=== PATIENT | male | born 1955 | race Caucasian/White ===

== ENCOUNTER 2023-10-13 23:02 | Inpatient (IN) | payer MEDICARE ==
[~2023-10-13] VITALS: Ht 182.9 cm; Wt 135.2 kg
[2023-10-13] MEDS ORDERED: PIPERACILLIN/TAZOBACTAM 3.375 GM VIAL ONE (23:30)
[2023-10-13] MEDS: SODIUM CHLORIDE 0.9% 1000ML 1,000 ML IV STA (23:31)
[2023-10-13] MEDS: ACETAMINOPHEN 325 MG TAB PO STA (23:31)
[2023-10-13] MEDS ORDERED: SODIUM CHLORIDE 0.9% 1000ML 1,000 ML ONE (23:31)
[2023-10-13 23:53] LABS: BASOPHILS # (AUTO) 0.1 (0.0-0.1); BASOPHILS % 0.3 % (0.0-1.0); HEMATOCRIT 42.1 % (38.2-49.6); HEMOGLOBIN 15.1 g/dL (14.0-18.0); LYMPHOCYTES # (AUTO) 0.6 (1.0-3.2); LYMPHOCYTES % 3.4 % (18.0-39.1); MEAN CORPUSCULAR HEMOGLOBIN 29.1 pg (28-32); MEAN CORPUSCULAR HGB CONC 35.9 g/dL (31-35); MEAN CORPUSCULAR VOLUME 81.1 fL (81-99); MONOCYTES # (AUTO) 0.8 (0.2-0.8); MONOCYTES % 4.2 % (4.4-11.3); NEUTROPHILS # (AUTO) 16.8 (2.1-6.9); NEUTROPHILS % 91.2 % (38.7-80.0); PLATELET COUNT 125 x10e3/uL (140-360); RED BLOOD COUNT 5.19 x10e6/uL (4.3-5.7); RED CELL DISTRIBUTION WIDTH 13.7 % (11.7-14.4); WHITE BLOOD COUNT 18.42 x10e3/uL (4.8-10.8)
[2023-10-13 23:55] LABS: BILIRUBIN,URINE SMALL (NEGATIVE); CLARITY,URINE SL CLOUDY (CLEAR); COLOR,URINE ORANGE (YELLOW); GLUCOSE, URINE NEGATIVE (NEGATIVE); KETONES,URINE NEGATIVE (NEGATIVE); LEUKOCYTE ESTERASE ,URINE NEGATIVE (NEGATIVE); NITRITE,URINE NEGATIVE (NEGATIVE); PH,URINE 5.5 (5 - 7); PROTEIN,URINE DIPSTICK 2+ (NEGATIVE); URINE UROBILINOGEN 0.2 mg/dL (0.2 - 1)
[2023-10-14 00:04] LABS: ALANINE AMINOTRANSFERASE 342 IU/L (0-55); ALBUMIN 2.8 g/dL (3.5-5.0); ALBUMIN/GLOBULIN RATIO 0.8 (0.8-2.0); ALKALINE PHOSPHATASE 181 IU/L (40-150); ANION GAP 17.6 mmol/L (8-16); BILIRUBIN,TOTAL 3.3 mg/dL (0.2-1.2); BLOOD UREA NITROGEN 35 mg/dL (7-26); BUN/CREATININE RATIO 17 (6-25); CALCIUM 8.3 mg/dL (8.4-10.2); CARBON DIOXIDE 17 mmol/L (22-29); CHLORIDE 96 mmol/L (98-107); CREATINE KINASE 719 IU/L (30-200); CREATININE, SERUM 2.06 mg/dL (0.72-1.25); EST GLOMERULAR FILTRATION RATE 34 ML/MIN (>=60); GLUCOSE 121 mg/dL (74-118); POTASSIUM 3.6 mmol/L (3.5-5.1); SODIUM 127 mmol/L (136-145); TOTAL PROTEIN 6.3 g/dL (6.5-8.1)
[2023-10-14 00:14] LABS: TROPONIN I < 0.05 ng/mL (0.0-0.40)
[2023-10-14 00:20] LABS: B-TYPE NATRIURETIC PEPTIDE2 34.7 pg/mL (0-100)
[2023-10-14] MEDS ORDERED: IOPAMIDOL 370 MG/ML 100 ML INFUS..BTL INJ ONE (00:48)
[2023-10-14 00:49] LABS: BACTERIA,URINE MANY /HPF; EPITHELIAL CELLS,URINE FEW /LPF; RBC,URINE 0-5 /HPF (0-5)
[2023-10-14 01:47] LABS: ABG HCO3 17 mmol/L (22-26); ABG PCO2 26 mmHg (35-45); ABG PH 7.41 (7.35-7.45); ABG PO2 26 mmHg (80-105); ABG TCO2 17
[2023-10-14] MEDS ORDERED: SODIUM BICARBONATE 8.4% SYRING 150 ML ONE (01:49)
[2023-10-14] MEDS ORDERED: DEXTROSE 5%/0.45% SOD CHL 1,000 ML IV ONE (01:50)
[2023-10-14] MEDS: SODIUM BICARBONATE 8.4% SYRING 150 ML in DEXTROSE 5%/0.45% SOD CHL 1,000 ML IV ONE (01:55)
[2023-10-14] MEDS ORDERED: SODIUM CHLORIDE 0.9% 1000ML 1,000 ML IV SCH (03:30)
[2023-10-14] MEDS ORDERED: Morphine 4mg INJECTION 4 MG/ML INJ IV PRN (03:30)
[2023-10-14 07:06] LABS: TROPONIN I 0.016 ng/mL (0-0.300)
[2023-10-14] MEDS ORDERED: LACTATED RINGER'S 1,000 ML ONE (13:48)
[2023-10-14] MEDS: LACTATED RINGER'S 1,000 ML IV ONE (13:54)
[2023-10-14 15:24] LABS: TROPONIN I 0.032 ng/mL (0-0.300)
[2023-10-14] MEDS ORDERED: ALBUTEROL SULF 0.083% NEB SOLN 3 ML NEB NEB PRN (16:45)
[2023-10-14] MEDS ORDERED: HYDRALAZINE HCL 20 MG/ML VIAL IV PRN (16:45)
[2023-10-14] MEDS ORDERED: ACETAMINOPHEN 650 MG SUPP PR PRN (16:45)
[2023-10-14] MEDS ORDERED: MELATONIN 3 MG TAB PO PRN (16:45)
[2023-10-14] MEDS ORDERED: GUAIFENESIN/DEXTROMETHORPHAN LIQD 5 ML UDC PO PRN (16:45)
[2023-10-14] MEDS ORDERED: DOCUSATE SODIUM 100 MG CAP PO PRN (16:45)
[2023-10-14] MEDS ORDERED: MAGNESIUM/ALUMINUM/SIMETHICONE 30 ML UDC PO PRN (16:45)
[2023-10-14] MEDS: SODIUM CHLORIDE 0.9% 1000ML 1,000 ML IV ONE (16:48)
[2023-10-14] MEDS: VANCOMYCIN 1.25GM/250ML PREMIX 250 ML IV ONE (18:14)
[2023-10-14] MEDS: ENOXAPARIN SOD INJ 40 MG/0.4 ML SYR SC SCH (18:15)
[2023-10-14] MEDS: ACETAMINOPHEN 1000 MG/100 ML IV STA (20:20)
[2023-10-14 21:00] VITALS: PULSE 111; RESP 30; O2SAT 94
[2023-10-14 21:17] LABS: ABG PCO2 26 mmHg (35-45); ABG PH 7.46 (7.35-7.45)
[2023-10-14 21:18] LABS: ABG HCO3 19 mmol/L (22-26); ABG PO2 70 mmHg (80-105); ABG TCO2 19
[2023-10-14] MEDS ORDERED: AMIODARONE 900MG 500 ML IV ONE (22:28)
[2023-10-14] MEDS: AMIODARONE HCL 150 MG/100 ML BAG IV ONE (22:28)
[2023-10-14] MEDS: AMIODARONE 900MG 900 MG in Premix Bag 1 BAG IV ONE (22:30)
[2023-10-15] VITALS (52 sets, daily range): BP systolic 83–102; BP diastolic 53–79; PULSE 88–125; RESP 18–46; TEMP 97.7–101.4; O2SAT 90–98
[2023-10-15] MEDS ORDERED: SODIUM CHLORIDE 0.9% 1000ML 1,000 ML ONE (00:32)
[2023-10-15 00:47] LABS: BASOPHILS # (AUTO) 0.1 (0.0-0.1); BASOPHILS % 0.4 % (0.0-1.0); EOSINOPHILS # (AUTO) 0.1 (0.0-0.4); EOSINOPHILS % 0.4 % (0.0-6.0); HEMATOCRIT 37.4 % (38.2-49.6); HEMOGLOBIN 13.2 g/dL (14.0-18.0); LYMPHOCYTES # (AUTO) 0.7 (1.0-3.2); MEAN CORPUSCULAR HEMOGLOBIN 29.2 pg (28-32); MEAN CORPUSCULAR HGB CONC 35.3 g/dL (31-35); MEAN CORPUSCULAR VOLUME 82.7 fL (81-99); MONOCYTES # (AUTO) 0.8 (0.2-0.8); MONOCYTES % 3.6 % (4.4-11.3); NEUTROPHILS # (AUTO) 20.1 (2.1-6.9); NEUTROPHILS % 91.2 % (38.7-80.0); RED BLOOD COUNT 4.52 x10e6/uL (4.3-5.7); RED CELL DISTRIBUTION WIDTH 14.3 % (11.7-14.4); WHITE BLOOD COUNT 22.09 x10e3/uL (4.8-10.8)
[2023-10-15 00:51] LABS: PLATELET COUNT 99 x10e3/uL (140-360)
[2023-10-15 01:04] LABS: ALBUMIN 2.1 g/dL (3.5-5.0); ALBUMIN/GLOBULIN RATIO 0.7 (0.8-2.0); ANION GAP 17.1 mmol/L (8-16); BILIRUBIN,TOTAL 3.2 mg/dL (0.2-1.2); CALCIUM 7.5 mg/dL (8.4-10.2)
[2023-10-15 01:06] LABS: TROPONIN I 0.041 ng/mL (0-0.300)
[2023-10-15 01:15] LABS: POTASSIUM 3.1 mmol/L (3.5-5.1)
[2023-10-15 01:16] LABS: CREATININE, SERUM 3.29 mg/dL (0.72-1.25)
[2023-10-15] MEDS: SODIUM CHLORIDE 0.9% 1000ML 1,000 ML IV ONE (01:40)
[2023-10-15] MEDS ORDERED: SODIUM BICARBONATE 8.4% SYRING 50 ML ONE (02:06)
[2023-10-15] MEDS ORDERED: SODIUM CHLORIDE 0.45% 1,000 ML ONE (02:06)
[2023-10-15] MEDS: POTASSIUM CHLORIDE 20MEQ/100ML 100 ML IV ONE (02:09)
[2023-10-15] MEDS: SODIUM BICARBONATE 8.4% SYRING 50 ML in SODIUM CHLORIDE 0.45% 1,000 ML IV ONE (02:10)
[2023-10-15] MEDS ORDERED: NOREPINEPHRINE 8 MG/D5W 250 ML 250 ML ONE (04:11)
[2023-10-15] MEDS: NOREPINEPHRINE 8 MG/D5W 250 ML 250 ML IV SCH (04:57)
[2023-10-15] MEDS: ONDANSETRON HCL INJ 2MG/ML 2ML 2 MG/ML VIAL IV PRN (08:43)
[2023-10-15] MEDS ORDERED: HEPARIN SOD/DEXTROSE 5% 25000 UNIT/250 ML BAG IV SCH (13:30)
[2023-10-15] MEDS: LACTATED RINGER'S 1,000 ML INJ SCH (14:45)
[2023-10-15] MEDS: HEPARIN SOD (PORCINE) 1000 UNIT/ML SDV IV ONE (14:46)
[2023-10-15] MEDS: HEPARIN 25,000 UNIT/D5W 250ML 250 ML IV SCH (14:49)
[2023-10-15] MEDS: CALCIUM CARBONATE 500 MG CHEWABLE TABS PO SCH (16:32)
[2023-10-15 18:05] LABS: CREATININE,URINE RANDOM 233.71 mg/dL (63-166); TOTAL PROTEIN, URINE 68.7 mg/dL (1-14)
[2023-10-15 19:06] LABS: INR 1.49; PROTHROMBIN TIME 18.9 seconds (11.9-14.5)
[2023-10-15] MEDS: ACETAMINOPHEN 325 MG TAB PO PRN (20:39)
[2023-10-16] VITALS (85 sets, daily range): BP systolic 65–124; BP diastolic 46–99; PULSE 45–160; RESP 15–49; TEMP 98.9–100.8; O2SAT 74–99
[2023-10-16 06:25] LABS: BASOPHILS # (AUTO) 0.1 (0.0-0.1); BASOPHILS % 0.3 % (0.0-1.0); EOSINOPHILS % 0.1 % (0.0-6.0); HEMATOCRIT 35.1 % (38.2-49.6); HEMOGLOBIN 12.5 g/dL (14.0-18.0); LYMPHOCYTES # (AUTO) 1.3 (1.0-3.2); LYMPHOCYTES % 5.8 % (18.0-39.1); MEAN CORPUSCULAR HEMOGLOBIN 29.3 pg (28-32); MEAN CORPUSCULAR HGB CONC 35.6 g/dL (31-35); MEAN CORPUSCULAR VOLUME 82.2 fL (81-99); MONOCYTES # (AUTO) 0.8 (0.2-0.8); MONOCYTES % 3.5 % (4.4-11.3); NEUTROPHILS % 87.7 % (38.7-80.0); PLATELET COUNT 131 x10e3/uL (140-360); RED BLOOD COUNT 4.27 x10e6/uL (4.3-5.7); RED CELL DISTRIBUTION WIDTH 14.9 % (11.7-14.4); WHITE BLOOD COUNT 22.79 x10e3/uL (4.8-10.8)
[2023-10-16 07:14] LABS: ALBUMIN 1.8 g/dL (3.5-5.0); ALBUMIN/GLOBULIN RATIO 0.6 (0.8-2.0); ANION GAP 19.2 mmol/L (8-16); BILIRUBIN,TOTAL 2.3 mg/dL (0.2-1.2); CALCIUM 7.5 mg/dL (8.4-10.2); CREATININE, SERUM 4.88 mg/dL (0.72-1.25); MAGNESIUM 2.4 MG/DL (1.3-2.1); PHOSPHORUS 5.1 MG/DL (2.3-4.7)
[2023-10-16 07:17] LABS: POTASSIUM 3.2 mmol/L (3.5-5.1)
[2023-10-16] MEDS: AMIODARONE HCL 200 MG TAB PO SCH ×2 (09:43→15:29)
[2023-10-16] MEDS: METOPROLOL TARTRATE 25 MG TAB PO SCH ×2 (12:42→15:29)
[2023-10-16] MEDS: METOPROLOL TARTRATE INJ 1 MG/ML VIAL IV PRN (14:54)
[2023-10-17] VITALS (55 sets, daily range): BP systolic 87–145; BP diastolic 67–102; PULSE 90–121; RESP 21–41; TEMP 98.2; O2SAT 92–98
[2023-10-17 06:12] LABS: BASOPHILS # (AUTO) 0.1 (0.0-0.1); BASOPHILS % 0.4 % (0.0-1.0); EOSINOPHILS # (AUTO) 0.2 (0.0-0.4); EOSINOPHILS % 0.9 % (0.0-6.0); HEMATOCRIT 35.4 % (38.2-49.6); HEMOGLOBIN 12.5 g/dL (14.0-18.0); LYMPHOCYTES # (AUTO) 2.3 (1.0-3.2); LYMPHOCYTES % 12.2 % (18.0-39.1); MEAN CORPUSCULAR HGB CONC 35.3 g/dL (31-35); MEAN CORPUSCULAR VOLUME 82.1 fL (81-99); MONOCYTES # (AUTO) 0.9 (0.2-0.8); MONOCYTES % 4.6 % (4.4-11.3); NEUTROPHILS # (AUTO) 15.3 (2.1-6.9); PLATELET COUNT 197 x10e3/uL (140-360); RED BLOOD COUNT 4.31 x10e6/uL (4.3-5.7); RED CELL DISTRIBUTION WIDTH 15.5 % (11.7-14.4); WHITE BLOOD COUNT 19.07 x10e3/uL (4.8-10.8)
[2023-10-17 06:59] LABS: ALANINE AMINOTRANSFERASE 145 IU/L (0-55); ALBUMIN 1.9 g/dL (3.5-5.0); ALBUMIN/GLOBULIN RATIO 0.6 (0.8-2.0); ALKALINE PHOSPHATASE 105 IU/L (40-150); ANION GAP 19.2 mmol/L (8-16); BILIRUBIN,TOTAL 1.9 mg/dL (0.2-1.2); BLOOD UREA NITROGEN 87 mg/dL (7-26); BUN/CREATININE RATIO 15 (6-25); CALCIUM 7.6 mg/dL (8.4-10.2); CARBON DIOXIDE 17 mmol/L (22-29); CHLORIDE 98 mmol/L (98-107); CREATININE, SERUM 5.84 mg/dL (0.72-1.25); EST GLOMERULAR FILTRATION RATE 10 ML/MIN (>=60); GLUCOSE 104 mg/dL (74-118); POTASSIUM 3.2 mmol/L (3.5-5.1); SODIUM 131 mmol/L (136-145); TOTAL PROTEIN 5.3 g/dL (6.5-8.1)
[2023-10-17 10:14] LABS: INR 1.51; PROTHROMBIN TIME 19.1 seconds (11.9-14.5)
[2023-10-17 10:15] LABS: PARTIAL THROMBOPLASTIN TIME 50.7 seconds (23.8-35.5)
[2023-10-17] MEDS: METOPROLOL TARTRATE 50 MG TAB PO SCH (12:39)
[2023-10-18 19:09] LABS: COMPLEMENT C3 115 mg/dL (82-167)
[2023-10-19 05:19] LABS: COMPLEMENT C4 24 mg/dL (12-38)
[2023-10-19 07:06] LABS: HEPATITIS B SURFACE AG (P) Negative
[2023-10-19 07:07] LABS: HEPATITIS C ANTIBODY Non Reactive
[2023-10-20 05:41] LABS: TOXOPLASMA IGM ANTIBODY <3.0
[2023-10-23 04:40] LABS: ABG HCO3 17 mmol/L (22-26); ABG PCO2 26 mmHg (35-45); ABG PH 7.41 (7.35-7.45); ABG PO2 67 mmHg (80-105); ABG TCO2 17
[2023-10-23 04:40] LABS: ABG HCO3 19 mmol/L (22-26); ABG PCO2 26 mmHg (35-45); ABG PH 7.46 (7.35-7.45); ABG PO2 70 mmHg (80-105); ABG TCO2 19
== END 2023-10-17 20:18 | disposition short-term general hospital (02) | DRG 871 ==
LOC: ER 23:05 → ERHOLD 10-14 03:20 → ICU 10-15 13:18
PROVIDERS: ADMIT Internal Medicine; ATTEND Internal Medicine
PROC: 3E03329 Introduction of Other Anti-infective into Peripheral Vein, Percutaneous Approach (ICD-10-PCS; 2023-10-13)
PROC: 5A09357 Assistance with Respiratory Ventilation, Less than 24 Consecutive Hours, Continuous Positive Airway Pressure (ICD-10-PCS; principal; 2023-10-14)
PROC: 4A033R1 Measurement of Arterial Saturation, Peripheral, Percutaneous Approach (ICD-10-PCS; 2023-10-14)
PROC: 4A033R1 Measurement of Arterial Saturation, Peripheral, Percutaneous Approach (ICD-10-PCS; 2023-10-14)
PROC: 4A033R1 Measurement of Arterial Saturation, Peripheral, Percutaneous Approach (ICD-10-PCS; 2023-10-14)
PROC: 4A033R1 Measurement of Arterial Saturation, Peripheral, Percutaneous Approach (ICD-10-PCS; 2023-10-14)
PROC: 5A09357 Assistance with Respiratory Ventilation, Less than 24 Consecutive Hours, Continuous Positive Airway Pressure (ICD-10-PCS; 2023-10-15)
PROC: 05HN33Z Insertion of Infusion Device into Left Internal Jugular Vein, Percutaneous Approach (ICD-10-PCS; 2023-10-15)
PROC: B544ZZA Ultrasonography of Left Jugular Veins, Guidance (ICD-10-PCS; 2023-10-15)
PROC: 3E033XZ Introduction of Vasopressor into Peripheral Vein, Percutaneous Approach (ICD-10-PCS; 2023-10-15)
PROC: 5A09357 Assistance with Respiratory Ventilation, Less than 24 Consecutive Hours, Continuous Positive Airway Pressure (ICD-10-PCS; 2023-10-16)
DX: A41.89 Other specified sepsis (principal); J96.00 Acute respiratory failure, unspecified whether with hypoxia or hypercapnia; R65.21 Severe sepsis with septic shock; N39.0 Urinary tract infection, site not specified; N17.9 Acute kidney failure, unspecified; I47.10 Supraventricular tachycardia, unspecified; E87.20 Acidosis, unspecified; Z68.41 Body mass index [BMI] 40.0-44.9, adult; I48.92 Unspecified atrial flutter; B97.89 Other viral agents as the cause of diseases classified elsewhere; I48.91 Unspecified atrial fibrillation; R11.2 Nausea with vomiting, unspecified; R19.7 Diarrhea, unspecified; K76.9 Liver disease, unspecified; I10 Essential (primary) hypertension; E66.01 Morbid (severe) obesity due to excess calories; R74.8 Abnormal levels of other serum enzymes; R74.01 Elevation of levels of liver transaminase levels; Z11.52 Encounter for screening for COVID-19; Z85.46 Personal history of malignant neoplasm of prostate
CPT/HCPCS: 36415; 36600; 71045; 71260; 74177; 76705; 76770; 80053; 80202; 81001; 82550; 82570; 82805; 83605; 83690; 83735; 83880; 84100; 84156; 84484; 85025; 85610; 85730; 86039; 86160; 86162; 86777; 86778; 87040; 87400; 93005; 93306; 93970; 94660; 94799; 99285; J1644; J1650; J2405; J2543; J3480; J7030; Q9967; U0002